=== PATIENT | male | born 1970 | race Caucasian/White ===

== ENCOUNTER 2021-04-27 01:23 | Inpatient (IN) | payer BC ==
[2021-04-27 02:22] LABS: Absolute Lymphocytes (CBC) 0.8 K/uL (0.7-4.9); Basophils % 0.6 % (0-1.3); Hematocrit 46.3 % (39.6-49.0); Lymphocytes % 11.7 % (15.3-44.8); MPV 7.8 fL (7.6-11.3); RBC Red Blood Cell Count 5.56 M/uL (4.33-5.43)
[2021-04-27 02:23] LABS: Protime INR 1.11
[2021-04-27 02:38] LABS: ALT/SGPT 62 U/L (12-78); AST/SGOT 58 U/L (15-37); Albumin 3.4 g/dL (3.4-5.0); Alkaline Phosphatase 157 U/L (45-117); BUN Blood Urea Nitrogen 8 mg/dL (7-18); Bicarbonate 29 mmol/L (21-32); Bilirubin Direct 0.2 mg/dL (0-0.2); Bilirubin Total 0.5 mg/dL (0.2-1.0); Glucose Level 248 mg/dL (74-106); Magnesium 1.8 mg/dL (1.8-2.4); NT PRO-BNP 144 pg/mL (<125); Potassium 3.8 mmol/L (3.5-5.1); Protein, Total 7.5 g/dL (6.4-8.2); Sodium Level 132 mmol/L (136-145); Troponin (Emerg Dept Use Only) < 0.02 ng/mL (0.0-0.045)
[2021-04-27 03:35] LABS: SARS-COV-2 RT PCR POSITIVE (NEGATIVE)
[2021-04-27] MEDS ORDERED: METHYLPREDNISOLONE 125 MG INJ ONE (04:49)
[2021-04-27] MEDS ORDERED: ALBUTEROL INHALER 60 PUFF/8 GM IH ONE (04:50)
--- NOTE | 2021-04-27 05:06 | EDPHYS ---
Physician Documentation [facility] Name: Erick Daigle Age: 50 yrs Sex: Male : 1970 Arrival Date: 04/27/2021 Time: 01:27 Bed 27 Private MD: ED Physician Timmy Corey HPI: 04/27 04:00 This 50 yrs old Male presents to ER via Ambulatory with complaints of mh7 Breathing Difficulty, LOW 02-84%. 04:00 The patient has shortness of breath at rest, with light activity. Onset: The mh7 symptoms/episode began/occurred 3 day(s) ago, and became worse yesterday. Duration: The symptoms are intermittent, with no pattern. The patient's shortness of breath is aggravated by coughing, exertion, light activity, is alleviated by nothing. Associated signs and symptoms: Pertinent positives: non-productive cough, fever, Pertinent negatives: productive cough, diaphoresis, dizziness, hemoptysis, loss of consciousness, nausea, numbness in extremities, visual changes, vomiting. Severity of symptoms: At their worst the symptoms were moderate today, in the emergency department the symptoms have improved moderately. Historical: - Allergies: 01:40 No Known Allergies; da3 - PMHx: 01:40 None; da3 - Immunization history:: Client reports having NOT received the Covid vaccine. - Social history:: Smoking status: unknown. ROS: 04:00 Eyes: Negative for injury, pain, redness, and discharge, ENT: Negative for injury, mh7 pain, and discharge, Neck: Negative for injury, pain, and swelling, Cardiovascular: Negative for chest pain, palpitations, and edema, Abdomen/GI: Negative for abdominal pain, nausea, vomiting, diarrhea, and constipation, Back: Negative for injury and pain, : Negative for injury, bleeding, discharge, and swelling, MS/Extremity: Negative for injury and deformity, Skin: Negative for injury, rash, and discoloration, Neuro: Negative for headache, weakness, numbness, tingling, and seizure, Psych: Negative for depression, anxiety, suicide ideation, homicidal ideation, and hallucinations, Allergy/Immunology: Negative for hives, rash, and allergies, Endocrine: Negative for neck swelling, polydipsia, polyuria, polyphagia, and marked weight changes, Hematologic/Lymphatic: Negative for swollen nodes, abnormal bleeding, and unusual bruising. Exam: 04:00 Constitutional: This is a well developed, well nourished patient who is awake, alert, mh7 and in no acute distress. Head/Face: Normocephalic, atraumatic. Eyes: Pupils equal round and reactive to light, extra-ocular motions intact. Lids and lashes normal. Conjunctiva and sclera are non-icteric and not injected. Cornea within normal limits. Periorbital areas with no swelling, redness, or edema. Neck: Trachea midline, no thyromegaly or masses palpated, and no cervical lymphadenopathy. Supple, full range of motion without nuchal rigidity, or vertebral point tenderness. No Meningismus. Chest/axilla: Normal chest wall appearance and motion. Nontender with no deformity. No lesions are appreciated. Cardiovascular: Regular rate and rhythm with a normal S1 and S2. No gallops, murmurs, or rubs. Normal PMI, no JVD. No pulse deficits. 04:00 Abdomen/GI: Soft, non-tender, with normal bowel sounds. No distension or tympany. No guarding or rebound. No evidence of tenderness throughout. Back: No spinal tenderness. No costovertebral tenderness. Full range of motion. Skin: Warm, dry with normal turgor. Normal color with no rashes, no lesions, and no evidence of cellulitis. MS/ Extremity: Pulses equal, no cyanosis. Neurovascular intact. Full, normal range of motion. Neuro: Awake and alert, GCS 15, oriented to person, place, time, and situation. Cranial nerves II-XII grossly intact. Motor strength 5/5 in all extremities. Sensory grossly intact. Cerebellar exam normal. Normal gait. Psych: Awake, alert, with orientation to person, place and time. Behavior, mood, and affect are within normal limits. 04:00 Respiratory: mild respiratory distress is noted, Respirations: prolonged exhalation, that is mild, Breath sounds: rhonchi, that are moderate, are heard diffusely, Respiratory rate: 26 Vital Signs: 01:41 BP 104 / 69; Pulse 83; Resp 18; da3 01:41 Temp 97; Pulse Ox 91% on R/A; da3 03:49 BP 115 / 79; Pulse 84; Resp 26; Temp 99.1; Pulse Ox 93% on R/A; bs2 MDM: 04:58 Differential diagnosis: Anemia Anxiety Reaction asthma, Bronchitis CHF exacerbation, 7 Chronic Obstructive Pulmonary Disease Myocardial Infarction pneumonia, Psychogenic pulmonary edema. Data reviewed: vital signs, nurses notes, lab test result(s), cardiac enzymes, CBC, electrolytes, Flu: negative urinalysis, Covid positive. Data interpreted: Pulse oximetry: on room air is 92 %. Interpretation: hypoxia. Plan: O2 by NC applied. 05:04 Counseling: I had a detailed discussion with the patient and/or guardian regarding: the [facility] historical points, exam findings, and any diagnostic results supporting the discharge/admit diagnosis, lab results, radiology results, the need for further work-up and treatment in the hospital. Response to treatment: the patient's symptoms have mildly improved after treatment. 05:05 Patient medically screened. [facility] 04/27 01:46 Order name: Influenza Screen (a \T\ B) [facility] 04/27 01:46 Order name: Basic Metabolic Panel; Complete Time: 03:43 [facility] 04/27 01:46 Order name: CBC with Diff; Complete Time: 03:43 04/27 01:46 Order name: LFT's; Complete Time: 03:43 04/27 01:46 Order name: Magnesium; Complete Time: 03:43 04/27 01:46 Order name: NT PRO-BNP; Complete Time: 03:43 04/27 01:46 Order name: PT-INR; Complete Time: 03:43 04/27 01:46 Order name: Troponin (emerg Dept Use Only); Complete Time: 03:43 04/27 01:46 Order name: Lactate; Complete Time: 03:43 04/27 01:46 Order name: Procalcitonin; Complete Time: 03:43 04/27 03:35 Order name: COVID-19/FLU A+B; Complete Time: 03:43 [facility]IA 04/27 01:46 Order name: XRAY Chest (1 view) [facility] 04/27 01:46 Order name: EKG; Complete Time: 01:47 04/27 01:46 Order name: Cardiac monitoring; Complete Time: 03:48 [facility] 04/27 01:46 Order name: EKG - Nurse/Tech; Complete Time: 03:48 mh04/27 01:46 Order name: IV Saline Lock; Complete Time: 03:48 [facility] 04/27 01:46 Order name: Labs collected and sent; Complete Time: 03:48 [facility] 04/27 01:46 Order name: O2 Per Protocol; Complete Time: 03:48 [facility] 04/27 04:09 Order name: DD ej 04/27 04:10 Order name: CONS Physician Consult [facility] 04/27 04:10 Order name: D-Dimer [facility] 04/27 07:47 Order name: Glucose, Ancillary Testing [facility] 04/27 11:59 Order name: Glucose, Ancillary Testing [facility] 04/27 12:51 Order name: Procalcitonin [facility] 04/27 15:49 Order name: Glucose, Ancillary Testing [facility] 04/27 01:46 Order name: O2 Sat Monitoring; Complete Time: 03:48 [facility] Administered Medications: 04:25 Drug: SOLU-Medrol (methylPrednisoLONE) 80 mg Route: IVP; Site: left antecubital; bs2 06:27 Follow up: Response: No adverse reaction bs2 04:25 Drug: Albuterol HFA Inhaler 2 puffs Route: Inhalation; bs2 Disposition Summary: 04/27/21 05:05 Hospitalization Ordered Hospitalization Status: Inpatient Admission [facility] Provider: Pawel Hanna Jolene Condition: Stable [facility] Problem: new [facility] Symptoms: have improved [facility] Bed/Room Type: Standard [facility] Location: Telemetry/MedSurg (Inpatient)(04/27/21 14:10) eb Room Assignment: [facility](04/27/21 14:10) eb Diagnosis - COVID Pneumonia, Hypoxia [facility] Forms: - Medication Reconciliation Form [facility] - SBAR form [facility] Signatures: Dispatcher [employer] [facility] Shania Mueller RN RN mw Botello, Elizabeth eb Holmes, Maurice, MD MD 7 Landon Lawton RN RN [email or web address] Audrey Beard RN RN bs2 Corrections: (The following items were deleted from the chart) 02:20 01:46 Influenza Screen (A ordered. [facility]IA EDMS 02:31 02:29 CORONAVIRUS+MR.LAB.BRZ ordered. EDIA EDMS 05:07 05:05 Telemetry/MedSurg (Inpatient) formerly [facility] 05:07 05:05 mh7 mw 14:10 05:07 BR ER HOLD mw eb 14:10 05:07 ERHOLD- mw eb
--- NOTE | 2021-04-27 05:06 | ER ---
Nurse's Notes [facility] Name: Erick Daigle Age: 50 yrs Sex: Male : 1970 Arrival Date: 04/27/2021 Time: 01:27 Bed 27 Private MD: Diagnosis: COVID Pneumonia, Hypoxia Presentation: 04/27 01:39 Chief complaint: Patient states: short of breath. Coronavirus screen: Client denies da3 travel out of the [place] in the last 14 days. Client presents with at least one sign or symptom that may indicate coronavirus-19. Ebola Screen: No symptoms or risks identified at this time. Risk Assessment: Do you want to hurt yourself or someone else? Patient reports no desire to harm self or others. 01:39 Method Of Arrival: Ambulatory da3 01:39 Acuity: ANIA 3 da3 03:54 Initial Sepsis Screen: Does the patient meet any 2 criteria? RR > 20 per min. No. bs2 Patient's initial sepsis screen is negative. Does the patient have a suspected source of infection? Yes: Productive cough/pneumonia. Onset of symptoms is unknown. Triage Assessment: 01:41 General: Appears comfortable, Behavior is calm, cooperative. da3 03:55 Respiratory: Reports shortness of breath on exertion cough that is non-productive, bs2 Onset: The symptoms/episode began/occurred gradually, the patient has moderate shortness of breath. Historical: - Allergies: 01:40 No Known Allergies; da3 - PMHx: 01:40 None; da3 - Immunization history:: Client reports having NOT received the Covid vaccine. - Social history:: Smoking status: unknown. Screenin:50 Abuse screen: Denies threats or abuse. Denies injuries from another. Nutritional bs2 screening: No deficits noted. Tuberculosis screening: No symptoms or risk factors identified. Fall Risk None identified. Assessment: 02:11 General: Appears in no apparent distress. uncomfortable, Behavior is calm, cooperative. bb Cardiovascular: Capillary refill < 3 seconds Patient's skin is warm and dry. Respiratory: Airway is patent Respiratory effort is labored. GI: No deficits noted. Derm: Skin is clammy, Skin is pale, Skin temperature is cool. Musculoskeletal: Circulation, motion, and sensation intact. 03:50 Pain: Complains of pain in headache Pain currently is 2 out of 10 on a pain scale. bs2 Cardiovascular: Rhythm is regular. Respiratory: Breath sounds are diminished bilaterally. Vital Signs: 01:41 BP 104 / 69; Pulse 83; Resp 18; da3 01:41 Temp 97; Pulse Ox 91% on R/A; da3 03:49 BP 115 / 79; Pulse 84; Resp 26; Temp 99.1; Pulse Ox 93% on R/A; bs2 ED Course: 01:27 Patient arrived in ED. 01:40 Triage completed. da3 02:00 Initial lab(s) drawn, by oh, sent to lab. COVID swab sent to lab. Flu and/or RSV swab bb sent to lab. Inserted saline lock: 20 gauge in left antecubital area, using aseptic technique. Blood collected. 02:11 Patient has correct armband on for positive identification. bb 02:20 XRAY Chest (1 view) In Process Unspecified. EDMS 03:42 Timmy Corey MD is Attending Physician. 7 03:48 Audrey Beard RN is Primary Nurse. bs2 03:48 Influenza Screen (a \T\ B) Sent. bs2 03:50 No provider procedures requiring assistance completed. bs2 03:55 Patient placed in an exam room, on a stretcher, on radiographer cardiac catheterization, on pulse oximetry. bs2 EKG completed in triage. Results shown to MD. 05:05 Pawel Hanna MD is Hospitalizing Provider. [facility] 15:20 Primary Nurse role handed off by Audrey Beard RN [facility] 15:20 Sourav Severino RN is Primary Nurse. 5 Administered Medications: 04:25 Drug: SOLU-Medrol (methylPrednisoLONE) 80 mg Route: IVP; Site: left antecubital; bs2 06:27 Follow up: Response: No adverse reaction bs2 04:25 Drug: Albuterol HFA Inhaler 2 puffs Route: Inhalation; bs2 Outcome: 05:05 Decision to Hospitalize by Provider. 7 15:55 Patient left the ED. eb Signatures: Dispatcher [employer] EDFL Cinthia Bianchi RN RN bb Botello, Elizabeth Timmy Corey MD MD [facility] Adelaida Mills Landon Lawton RN RN 3 Audrey Beard RN RN bs2 Adyen Severinoopher, RN RN ch5
--- NOTE | 2021-04-27 06:09 | P.HP ---
Certification for Inpatient Patient admitted to: Observation With expected LOS: <2 Midnights Patient will require the following post-hospital care: None Practitioner: I am a practitioner with admitting privileges, knowledge of patient current condition, hospital course, and medical plan of care. Services: Services provided to patient in accordance with Admission requirements found in Title 42 Section 412.3 of the Code of Federal Regulations Patient History Date of Service: 04/27/21 Primary Care Provider: Cyndi Reason for admission: covid pneumonia History of Present Illness: Mr. Daigle is a 50 yo M who presents with two days of cough and SOB, with exposure to COVId last Wednesday from family member. At home his O2 sats were 84% on RA, 91% in the ED. He reports fever, malaise, headache, congestion, wheezing, ELISE, insomnia, constipation. Denies diarrhea. Reports good appetite and good fluid intake. Na 132. Glu 248. AST 58. alk phos 157. BNP 144. Ddimer 1121. - Past Medical/Surgical History -: 14 concussions -: blowout fracture left eye - Family History Mother -: Liver disease Notes: from liver cirrhosis - Social History Alcohol use: No CD- Drugs: No Caffeine use: Yes Place of Residence: Home Review of Systems 10-point ROS is otherwise unremarkable General: Fever, Malaise Respiratory: Cough, Shortness of Breath, SOB with Excertion, Wheezing Gastrointestinal: Constipation Physical Examination - Physical Exam General: Alert, In no apparent distress HEENT: Atraumatic, PERRLA, Mucous membr. moist/pink, EOMI, Sclerae nonicteric Neck: Supple, 2+ carotid pulse no bruit, No LAD, Without JVD or thyroid abnormality Respiratory: Normal air movement, Expiratory wheezes, Rhonchi/gurgles Cardiovascular: Regular rate/rhythm, Normal S1 S2 Gastrointestinal: Normal bowel sounds, No tenderness Musculoskeletal: No tenderness Integumentary: No rashes Neurological: Normal speech, Normal strength at 5/5 x4 extr, Normal tone, Normal affect Lymphatics: No axilla or inguinal lymphadenopathy - Studies Laboratory Data (last 24 hrs) 04/27/21 02:00: PT 12.8 H, INR 1.11 04/27/21 02:00: WBC 6.80, Hgb 16.1, Hct 46.3, Plt Count 169 04/27/21 02:00: Sodium 132 L, Potassium 3.8, BUN 8, Creatinine 0.83, Glucose 248 H, Magnesium 1.8, Total Bilirubin 0.5, AST 58 H, ALT 62, Alkaline Phosphatase 157 H Assessment and Plan - Problems (Diagnosis) (1) Pneumonia due to COVID-19 virus Current Visit: Yes Status: Acute (2) Hyperglycemia Current Visit: Yes Status: Acute - Plan pulm and respiratory consulted room air sats daily, sats for home O2 O2 as needed, currently on room air, desats with ambulation CTPE pending continue IV steroids, covid supplements, ivermectin daily crp, procal, ferritin A1c pending, sliding scale insulin and accuchecks DVT ppx Discharge Plan: Home Plan to discharge in: 48 Hours - Advance Directives Does patient have a Living Will: No Does patient have a Durable POA for Healthcare: No - Code Status/Comfort Care Code Status Assessed: Yes (full code ) Critical Care: No Time Spent Managing Pts Care (In Minutes): 70
[2021-04-27] MEDS ORDERED: ACETAMINOPHEN 500 MG TAB PO PRN (06:32)
[2021-04-27] MEDS ORDERED: ONDANSETRON 4 MG/2 ML VIAL IV PRN (06:32)
[2021-04-27] MEDS ORDERED: MELATONIN 5 MG TABLET PO PRN (06:32)
[2021-04-27] MEDS ORDERED: BENZONATATE 100 MG CAP PO PRN (06:32)
[2021-04-27] MEDS ORDERED: MORPHINE 2 MG/ML SYR IV PRN (06:32)
[2021-04-27] MEDS: IVERMECTIN 3 MG TABLET PO SCH (06:32)
[2021-04-27] MEDS: INSULIN -REGULAR HUMAN 50 UNIT/0.5 ML ML SQ SCH ×5 (07:30→20:33)
[2021-04-27] MEDS ORDERED: MORPHINE 2 MG/ML SYR ONE (07:54)
[2021-04-27] MEDS ORDERED: INSULIN -REGULAR HUMAN 50 UNIT/0.5 ML ML ONE ×2 (08:06→12:37)
[2021-04-27] MEDS ORDERED: ASCORBIC ACID 500 MG TABLET ONE ×2 (08:15→12:38)
[2021-04-27] MEDS ORDERED: ZINC SULFATE 220 MG CAP ONE (08:15)
[2021-04-27] MEDS ORDERED: ASPIRIN EC 81 MG TAB PO ONE (08:15)
[2021-04-27] MEDS ORDERED: VITAMIN D 1000 UNIT TAB ONE (08:16)
[2021-04-27] MEDS ORDERED: THIAMINE HCL 100 MG TABLET ONE (08:16)
[2021-04-27] MEDS ORDERED: ASPIRIN EC 81 MG TAB PO SCH (09:00)
[2021-04-27] MEDS ORDERED: THIAMINE HCL 100 MG TABLET PO SCH (09:00)
[2021-04-27] MEDS: FAMOTIDINE 20 MG TAB PO SCH ×2 (09:00→20:32)
[2021-04-27] MEDS: VITAMIN D 1000 UNIT TAB PO SCH (09:00)
[2021-04-27] MEDS: ASCORBIC ACID 500 MG TABLET PO SCH ×4 (09:00→20:32)
[2021-04-27] MEDS: ZINC SULFATE 220 MG CAP PO SCH (09:00)
--- NOTE | 2021-04-27 09:25 | RAD REPORT ---
EXAM DESCRIPTION: Mita Single View04/27/2021 2:20 am CLINICAL HISTORY: Shortness of breath COMPARISON: none FINDINGS: Moderate bilateral pulmonary opacities. The heart is normal size IMPRESSION: Moderate bilateral pulmonary opacities probably pneumonia
[2021-04-27 09:26] VITALS: BMI 24.4
--- NOTE | 2021-04-27 11:56 | P.CNS ---
Date of Consult: 04/27/21 Reason for Consult: Coronavirus pneumonia Primary Care Provider: Cyndi Chief Complaint: covid pneumonia History of Present Illness: Patient is 50 years of age admitted with acute onset of cough and shortness of breath diagnosed with coronavirus pneumonia he feels much better is on nasal cannula oxygen Allergies No Known Allergies Allergy (Unverified 04/27/21 06:32) - Past Medical/Surgical History -: 14 concussions -: blowout fracture left eye - Family History Mother Medical History: Liver disease Notes: from liver cirrhosis - Social History Alcohol use: No CD- Drugs: No Caffeine use: Yes Place of Residence: Home Review of Systems Respiratory: Shortness of Breath Physical Examination Temp Pulse Resp BP Pulse Ox 98.0 F 80 20 125/69 96 04/27/21 07:44 04/27/21 07:44 04/27/21 07:44 04/27/21 07:44 04/27/21 07:44 General: Alert, Oriented x3, Oriented x2, Cooperative Laboratory Data (last 24 hrs) 04/27/21 02:00: PT 12.8 H, INR 1.11 04/27/21 02:00: WBC 6.80, Hgb 16.1, Hct 46.3, Plt Count 169 04/27/21 02:00: Sodium 132 L, Potassium 3.8, BUN 8, Creatinine 0.83, Glucose 248 H, Magnesium 1.8, Total Bilirubin 0.5, AST 58 H, ALT 62, Alkaline Phosphatase 157 H - Problems (1) Pneumonia due to COVID-19 virus Current Visit: Yes Status: Acute Plan: Patient is 50 years of age admitted with coronavirus pneumonia he is on 2 L nasal cannula oxygen labs reviewed CT scan shows diffuse bilateral changes continue to observe for 1 day possible discharge tomorrow
[2021-04-27] MEDS ORDERED: POTASSIUM CL SA 10 MEQ TAB PO ONE (15:00)
[2021-04-27] MEDS ORDERED: MAGNESIUM SULFATE 1 gm IVPB 1 GM/100 ML BAG IV ONE (15:01)
[2021-04-27] MEDS: RIVAROXABAN 20 MG TABLET PO SCH (16:19)
[2021-04-27] MEDS ORDERED: RIVAROXABAN 10 MG TABLET PO SCH (17:00)
[2021-04-28 04:06] LABS: BUN Blood Urea Nitrogen 15 mg/dL (7-18); Bicarbonate 29 mmol/L (21-32); Glucose Level 242 mg/dL (74-106); Magnesium 2.4 mg/dL (1.8-2.4); Potassium 4.6 mmol/L (3.5-5.1); Sodium Level 138 mmol/L (136-145)
[2021-04-28] MEDS: ZINC SULFATE 220 MG CAP PO SCH (07:36)
[2021-04-28] MEDS: ASPIRIN EC 81 MG TAB PO SCH (07:36)
[2021-04-28] MEDS: VITAMIN D 1000 UNIT TAB PO SCH (07:36)
[2021-04-28] MEDS: THIAMINE HCL 100 MG TABLET PO SCH (07:37)
[2021-04-28] MEDS: METHYLPREDNISOLONE 125 MG INJ IV SCH ×2 (07:37→20:23)
[2021-04-28] MEDS: FAMOTIDINE 20 MG TAB PO SCH ×2 (07:38→20:03)
[2021-04-28] MEDS: ASCORBIC ACID 500 MG TABLET PO SCH ×4 (07:39→20:03)
[2021-04-28] MEDS: INSULIN -REGULAR HUMAN 50 UNIT/0.5 ML ML SQ SCH ×4 (07:40→20:26)
[2021-04-28] MEDS ORDERED: METHYLPREDNISOLONE 125 MG INJ IV SCH (09:00)
--- NOTE | 2021-04-28 10:26 | RAD REPORT ---
EXAM DESCRIPTION: CT - Chest For Pe Angio - 04/27/2021 7:05 am CLINICAL HISTORY: The patient is 50 years old and is Male; SOB TECHNIQUE: Axial computed tomographic angiography images of the chest with intravenous contrast. S agittal and coronal reformatted images were created and reviewed. This CT exam was performed using one or more of the following dose reduction techniques: automated exposure control, adjustment of t he mA and/or kV according to patient size, and/or use of iterative reconstruction technique. MIP re constructed images were created and reviewed. COMPARISON: No relevant prior studies available. FINDINGS: Artifacts: Motion artifact limits the sensitivity of the evaluation. Pulmonary arteries: No PE identified. Aorta: No acute findings. No thoracic aortic aneurysm. Lungs: Bilateral multifocal pulmonary groundglass opacities. Pleural space: No pleural effusion or pneumothorax. Heart: Unremarkable. No cardiomegaly. No significant pericardial effusion. No evidence of RV dysfunction. Mediastinum: Mildly enlarged right hilar and subcarinal lymph nodes. Bones/joints: Scoliosis. No acute fracture visualized. No dislocation. Soft tissues: Unremarkable. Lymph nodes: See above. Upper abdomen: Elevated right hemidiaphragm. IMPRESSION: 1. Motion artifact limits the sensitivity of the evaluation. No PE identified. 2. Bilateral multifocal pulmonary groundglass opacities. Imaging features can be seen with viral pneumonia, though are nonspecific and can occur with a variety of infectious and noninfectious proces ses. PneInd Electronically signed by: Thao Low MD 04/27/2021 6:47 AM CDT Due to temporary technical issues with the PACS/Fluency reporting system, reports are being signed by the in house radiologist without review as a courtesy to ensure prompt reporting. The interpreting r adiologist is fully responsible for the content of the report.
[2021-04-28] MEDS: RIVAROXABAN 20 MG TABLET PO SCH (16:07)
--- NOTE | 2021-04-28 16:38 | P.PN ---
Subjective Date of Service: 04/28/21 Primary Care Provider: Cyndi Chief Complaint: covid pneumonia Subjective: Other (Overall stable. Currently on 5 L per nasal cannula) Physical Examination - Vital Signs Temperature: 97.4 F Blood Pressure: 117/73 Pulse: 85 Respirations: 19 Pulse Ox (%): 92 Assessment & Plan Discharge Plan: Home Plan to discharge in: 48 Hours Physician Review Additional Text: COVID: Positive CT scan: COMPARISON: No relevant prior studies available. FINDINGS: Artifacts: Motion artifact limits the sensitivity of the evaluation. Pulmonary arteries: No PE identified. Aorta: No acute findings. No thoracic aortic aneurysm. Lungs: Bilateral multifocal pulmonary groundglass opacities. Pleural space: No pleural effusion or pneumothorax. Heart: Unremarkable. No cardiomegaly. No significant pericardial effusion. No evidence of RV dysfunction. Mediastinum: Mildly enlarged right hilar and subcarinal lymph nodes. Bones/joints: Scoliosis. No acute fracture visualized. No dislocation. Soft tissues: Unremarkable. Lymph nodes: See above. Upper abdomen: Elevated right hemidiaphragm. IMPRESSION: 1. Motion artifact limits the sensitivity of the evaluation. No PE identified. 2. Bilateral multifocal pulmonary groundglass opacities. Imaging features can be seen with viral pneumonia, though are nonspecific and can occur with a variety of infectious and noninfectious processes. Physical Exam: GENERAL: On 5 L per nasal cannula overall currently stable. VITAL SIGNS: Reviewed HEENT: Head is normocephalic and atraumatic. Extraocular muscles are intact. Pupils are equal, round, and reactive to light and accommodation. Nares appeared normal. Mouth is well hydrated and without lesions. Mucous membranes are moist. NECK: Supple. No carotid bruits. No lymphadenopathy or thyromegaly. LUNGS: Clear to auscultation. No crackles or wheezes are heard. 5 L per nasal cannula HEART: Regular rate and rhythm, no appreciable gallops, rubs, murmurs or extra heart sounds ABDOMEN: Soft, nontender, and nondistended. Positive bowel sounds. No hepatosplenomegaly was noted. EXTREMITIES: Without any cyanosis, clubbing, rash, lesions or peripheral edema. NEUROLOGIC: The patient is oriented to person, place and time. Strength and sensation are grossly intact. Face is symmetric. SKIN: Normal color, turgor and temperature. No ulcerations or rashes noted. Impression: Dyspnea secondary to bilateral Covid pneumonia with hypoxia Hyperglycemia suspect diabetes mellitus Plan: Continue with IV steroids, supplements. We will continue to monitor closely. DVT prophylaxisXarelto in place. Await recommendations by pulmonology. Anticipate improvement. Can likely be discharged home if less than 4 L per nasal cannula over the next 48 hours. Encourage incentive spirometer, proning. Respiratory to continue to wean off oxygen. Maintain sats above 93%. Will check A1c. Provide sliding scale. Evaluate for diabetes. Code Status: Full Code DVT prophylaxis: Xarelto Advanced Care Planning-30 minutes: Plan of care for the patient's discharge was discussed in detail with the patient and family. Time Spent Managing Pts Care (In Minutes): 55
[2021-04-28] MEDS ORDERED: VANCOMYCIN 500 MG/VIAL ONE (23:04)
[2021-04-29 03:45] LABS: Basophils % 0.2 % (0-1.3); Hematocrit 43.8 % (39.6-49.0); Lymphocytes % 5.9 % (15.3-44.8); MPV 6.9 fL (7.6-11.3); RBC Red Blood Cell Count 5.21 M/uL (4.33-5.43)
[2021-04-29 04:13] LABS: ALT/SGPT 49 U/L (12-78); AST/SGOT 40 U/L (15-37); Alkaline Phosphatase 152 U/L (45-117); BUN Blood Urea Nitrogen 19 mg/dL (7-18); Bicarbonate 29 mmol/L (21-32); Bilirubin Total 0.5 mg/dL (0.2-1.0); Glucose Level 252 mg/dL (74-106); Potassium 4.1 mmol/L (3.5-5.1); Protein, Total 7.2 g/dL (6.4-8.2); Sodium Level 138 mmol/L (136-145)
[2021-04-29 04:14] LABS: Ferritin 1198.2 ng/mL (26-388); Magnesium 2.4 mg/dL (1.8-2.4)
[2021-04-29 05:00] LABS: Blood Morphology Comment NOT SEEN (NOT SEEN); Platelet Estimate ADEQ
--- NOTE | 2021-04-29 06:39 | P.PN ---
Subjective Date of Service: 04/29/21 Primary Care Provider: Cyndi Chief Complaint: covid pneumonia Subjective: Improving (Currently on 4.5 L) Physical Examination - Vital Signs Temperature: 98.9 F Blood Pressure: 101/60 Pulse: 67 Respirations: 18 Pulse Ox (%): 93 Assessment & Plan Discharge Plan: Home Plan to discharge in: 24 Hours Physician Review Additional Text: COVID: Positive CT scan: COMPARISON: No relevant prior studies available. FINDINGS: Artifacts: Motion artifact limits the sensitivity of the evaluation. Pulmonary arteries: No PE identified. Aorta: No acute findings. No thoracic aortic aneurysm. Lungs: Bilateral multifocal pulmonary groundglass opacities. Pleural space: No pleural effusion or pneumothorax. Heart: Unremarkable. No cardiomegaly. No significant pericardial effusion. No evidence of RV dysfunction. Mediastinum: Mildly enlarged right hilar and subcarinal lymph nodes. Bones/joints: Scoliosis. No acute fracture visualized. No dislocation. Soft tissues: Unremarkable. Lymph nodes: See above. Upper abdomen: Elevated right hemidiaphragm. IMPRESSION: 1. Motion artifact limits the sensitivity of the evaluation. No PE identified. 2. Bilateral multifocal pulmonary groundglass opacities. Imaging features can be seen with viral pneumonia, though are nonspecific and can occur with a variety of infectious and noninfectious processes. Follow up CXR 04/29/2021: COMPARISON: April 27 FINDINGS: Mild worsening in bilateral pulmonary opacities. Right hemidiaphragm remains elevated. The heart is normal size IMPRESSION: Mild worsening in the bilateral pneumonia Physical Exam: GENERAL: Currently on 4.5 L VITAL SIGNS: Reviewed HEENT: Neck supple. LUNGS: Clear to auscultation. No crackles or wheezes are heard. Currently on 4.5 L HEART: Regular rate and rhythm, no appreciable gallops, rubs, murmurs or extra heart sounds ABDOMEN: Soft, nontender, and nondistended. Positive bowel sounds. No hepatosplenomegaly was noted. EXTREMITIES: Without any cyanosis, clubbing, rash, lesions or peripheral edema. NEUROLOGIC: The patient is oriented to person, place and time. Strength and sensation are grossly intact. Face is symmetric. SKIN: Normal color, turgor and temperature. No ulcerations or rashes noted. Impression: Dyspnea secondary to bilateral Covid pneumonia with hypoxia Hyperglycemia suspect diabetes mellitus Plan: Patient continues to improve. Wean down below 4 L. If tolerating 4 L or less will consider discharge within the next 24 hours. Maintain oxygen above 93%. Continue IV steroids, supplementation. We will continue to monitor CRP and ferritin. Patient on DVT prophylaxisXarelto. Encourage stat spirometer, proning. Hemoglobin A1c 10.4. Patient with diabetes. Will start Metformin 500 mg twice daily. We will continue to monitor blood sugar closely. Consider additional medication if blood sugar still elevated. Possible home tomorrow Code Status: Full Code DVT prophylaxis: Xarelto Advanced Care Planning-30 minutes: Home at discharge will arrange for oxygen Time Spent Managing Pts Care (In Minutes): 55
[2021-04-29] MEDS: IVERMECTIN 3 MG TABLET PO SCH (06:57)
--- NOTE | 2021-04-29 07:40 | RAD REPORT ---
EXAM DESCRIPTION: Mita Single View04/29/2021 7:10 am CLINICAL HISTORY: Shortness of breath COMPARISON: April 27 FINDINGS: Mild worsening in bilateral pulmonary opacities. Right hemidiaphragm remains elevated. The heart is normal size IMPRESSION: Mild worsening in the bilateral pneumonia
[2021-04-29] MEDS: INSULIN -REGULAR HUMAN 50 UNIT/0.5 ML ML SQ SCH ×4 (09:52→19:59)
[2021-04-29] MEDS: ASPIRIN EC 81 MG TAB PO SCH (09:54)
[2021-04-29] MEDS: ZINC SULFATE 220 MG CAP PO SCH (09:54)
[2021-04-29] MEDS: VITAMIN D 1000 UNIT TAB PO SCH (09:54)
[2021-04-29] MEDS: FAMOTIDINE 20 MG TAB PO SCH ×2 (09:54→19:58)
[2021-04-29] MEDS: ASCORBIC ACID 500 MG TABLET PO SCH ×4 (09:55→19:57)
[2021-04-29] MEDS: METHYLPREDNISOLONE 125 MG INJ IV SCH ×2 (09:55→19:58)
[2021-04-29] MEDS: THIAMINE HCL 100 MG TABLET PO SCH (09:55)
[2021-04-29] MEDS: RIVAROXABAN 20 MG TABLET PO SCH (18:11)
[2021-04-29] MEDS: METFORMIN HCL 500 MG TAB PO SCH (18:12)
[2021-04-30 04:11] LABS: Absolute Lymphocytes (CBC) 0.9 K/uL (0.7-4.9); Basophils % 0.2 % (0-1.3); Hematocrit 44.6 % (39.6-49.0); Lymphocytes % 4.6 % (15.3-44.8); MPV 6.8 fL (7.6-11.3); RBC Red Blood Cell Count 5.33 M/uL (4.33-5.43)
[2021-04-30 04:35] LABS: ALT/SGPT 49 U/L (12-78); AST/SGOT 39 U/L (15-37); Albumin 2.9 g/dL (3.4-5.0); Alkaline Phosphatase 144 U/L (45-117); BUN Blood Urea Nitrogen 27 mg/dL (7-18); Bicarbonate 29 mmol/L (21-32); Bilirubin Total 0.5 mg/dL (0.2-1.0); Ferritin 1095.8 ng/mL (26-388); Glucose Level 227 mg/dL (74-106); Magnesium 2.5 mg/dL (1.8-2.4); Potassium 4.2 mmol/L (3.5-5.1); Sodium Level 138 mmol/L (136-145)
--- NOTE | 2021-04-30 06:22 | P.DS ---
Admission Date: 04/27/21 Discharge Date: 04/30/21 Primary Care Provider: Dr. Hanna Disposition: ROUTINE DISCHARGE Discharge Condition: GOOD Reason for Admission: covid pneumonia Consultations: Pulmonary-Dr. Damon Procedures: COVID: Positive CT scan: COMPARISON: No relevant prior studies available. FINDINGS: Artifacts: Motion artifact limits the sensitivity of the evaluation. Pulmonary arteries: No PE identified. Aorta: No acute findings. No thoracic aortic aneurysm. Lungs: Bilateral multifocal pulmonary groundglass opacities. Pleural space: No pleural effusion or pneumothorax. Heart: Unremarkable. No cardiomegaly. No significant pericardial effusion. No evidence of RV dysfunction. Mediastinum: Mildly enlarged right hilar and subcarinal lymph nodes. Bones/joints: Scoliosis. No acute fracture visualized. No dislocation. Soft tissues: Unremarkable. Lymph nodes: See above. Upper abdomen: Elevated right hemidiaphragm. IMPRESSION: 1. Motion artifact limits the sensitivity of the evaluation. No PE identified. 2. Bilateral multifocal pulmonary groundglass opacities. Imaging features can be seen with viral pneumonia, though are nonspecific and can occur with a variety of infectious and noninfectious processes. Follow up CXR 04/29/2021: COMPARISON: April 27 FINDINGS: Mild worsening in bilateral pulmonary opacities. Right hemidiaphragm remains elevated. The heart is normal size IMPRESSION: Mild worsening in the bilateral pneumonia Medical Problem List: Dyspnea secondary to bilateral Covid pneumonia with hypoxia Hyperglycemia suspect diabetes mellitus Brief History of Present Illness: 50-year-old male presented with increased cough and shortness of breath. Patient was exposed to a patient with Covid last Wednesday. Patient found to be hypoxic in the ER. Patient admitted for treatment. Hospital Course: Patient presented with dyspnea secondary to bilateral Covid pneumonia with hypoxia. Patient was admitted for treatment. Patient required IV antibiotic therapy and supplementation. His condition has significantly improved. Patient currently on 2 L per nasal cannula. CT scan showed no evidence of pulmonary embolism. At discharge the patient will continue with home oxygen to maintain sats above 93%. Home oxygen will be arranged. Currently on 2 L per nasal cannula. At discharge the patient will continue with prednisone 20 mg 1 pill twice daily for 7 days then 1 pill once daily for 7 days. The patient will also continue with Tessalon Perles 100 mg 3 times a day as needed for cough. The patient will continue with aspirin 81 mg daily. The patient will continue with vitamin supplementation including vitamin C 500 mg 1 pill 3 times a day, vitamin D 2000 units once daily, thiamine 100 mg 1 pill twice daily, Pepcid 20 mg 1 pill twice daily, and zinc 220 mg daily. Patient will continue with COVID-19 isolation guideline. Patient will continue with incentive spirometer, proning and lying on his side. Patient will continue with facemask use, handwashing, social distancing. Patient will follow up with pulmonology in 1 week to follow- up his hospitalization and continue his care. Pulmonology will help wean the patient off of the oxygen. Recommend to recheck chest x-ray in 2 to 4 weeks to monitor his progress. Recommend follow-up with his PCP in 1 week to follow-up this hospitalization as well. Patient was found to have hyperglycemia. New diagnosis of diabetes mellitus type 2 was noted. Hemoglobin A1c 10.4. Blood sugars were treated during the course of his stay. At discharge the patient will continue with Metformin 500 mg 1 pill twice daily. Patient will continue with a 2000 ADA diet. Patient will need to limit his use of carbohydrates. Education on diabetes provided. Recommend to monitor blood sugars at least twice daily. If his blood sugars remain greater than 200 further adjustment in medication may be required. This can be done with the help of his PCP. Recommend to recheck hemoglobin A1c in 3 months to monitor his progress. Recommend follow-up with PCP in 1 week to further address his condition. Vital Signs/Physical Exam: Temp Pulse Resp BP Pulse Ox 97.6 F 65 18 107/56 L 94 04/30/21 04:00 04/30/21 04:00 04/30/21 04:00 04/30/21 04:00 04/30/21 04:00 General: Alert, In no apparent distress, Cooperative HEENT: Atraumatic Neck: Supple Respiratory: Clear to auscultation bilaterally, Other (Currently on 2 L per nasal cannula) Cardiovascular: Normal pulses, Regular rate/rhythm Gastrointestinal: Normal bowel sounds Integumentary: No tenderness/swelling Neurological: Normal speech, Normal strength at 5/5 x4 extr, Normal tone Laboratory Data at Discharge: WBC 19.20 K/uL (4.3-10.9) H D 04/30/21 03:56 Hgb 15.3 g/dL (13.6-17.9) 04/30/21 03:56 Hct 44.6 % (39.6-49.0) 04/30/21 03:56 Plt Count 319 K/uL (152-406) 04/30/21 03:56 PT 12.8 SECONDS (9.5-12.5) H 04/27/21 02:00 INR 1.11 04/27/21 02:00 Sodium 138 mmol/L (136-145) 04/30/21 03:56 Potassium 4.2 mmol/L (3.5-5.1) 04/30/21 03:56 BUN 27 mg/dL (7-18) H 04/30/21 03:56 Creatinine 0.81 mg/dL (0.55-1.3) 04/30/21 03:56 Glucose 227 mg/dL (74-106) H 04/30/21 03:56 Magnesium 2.5 mg/dL (1.8-2.4) H 04/30/21 03:56 Total Bilirubin 0.5 mg/dL (0.2-1.0) 04/30/21 03:56 AST 39 U/L (15-37) H 04/30/21 03:56 ALT 49 U/L (12-78) 04/30/21 03:56 Alkaline Phosphatase 144 U/L (45-117) H 04/30/21 03:56 Home Medications: Ascorbic Acid [Vitamin C*] 500 mg PO TID #90 tablet 04/30/21 Aspirin [Aspirin EC 81 MG] 81 mg PO DAILY #30 tablet. 04/30/21 Benzonatate [Tessalon Perle*] 100 mg PO TID PRN #15 cap 04/30/21 Cholecalciferol (Vitamin D3) [Vitamin D 1000 Iu Tab*] 2,000 unit PO DAILY #60 tab 04/30/21 Famotidine [Pepcid*] 20 mg PO BID #60 tab 04/30/21 Metformin HCl [Glucophage*] 500 mg PO BIDWM #60 tab 04/30/21 Thiamine HCl [Vitamin B-1*] 100 mg PO BID #60 tablet 04/30/21 Zinc Sulfate [Zinc Sulfate*] 220 mg PO DAILY #30 cap 04/30/21 predniSONE [Prednisone*] 20 mg PO SEECOM #21 tab 04/30/21 New Medications: Aspirin [Aspirin EC 81 MG] 81 mg PO DAILY #30 tablet. Metformin HCl [Glucophage*] 500 mg PO BIDWM #60 tab Famotidine [Pepcid*] 20 mg PO BID #60 tab predniSONE [Prednisone*] 20 mg PO SEECOM #21 tab Benzonatate [Tessalon Perle*] 100 mg PO TID PRN #15 cap PRN Reason: Cough Thiamine HCl [Vitamin B-1*] 100 mg PO BID #60 tablet Ascorbic Acid [Vitamin C*] 500 mg PO TID #90 tablet Cholecalciferol (Vitamin D3) [Vitamin D 1000 Iu Tab*] 2,000 unit PO DAILY #60 tab Zinc Sulfate [Zinc Sulfate*] 220 mg PO DAILY #30 cap Physician Discharge Instructions: Patient presented with dyspnea secondary to bilateral Covid pneumonia with hypoxia. Patient was admitted for treatment. Patient required IV antibiotic therapy and supplementation. His condition has significantly improved. Patient currently on 2 L per nasal cannula. CT scan showed no evidence of pulmonary embolism. At discharge the patient will continue with home oxygen to maintain sats above 93%. Home oxygen will be arranged. Currently on 2 L per nasal cannula. At discharge the patient will continue with prednisone 20 mg 1 pill twice daily for 7 days then 1 pill once daily for 7 days. The patient will also continue with Tessalon Perles 100 mg 3 times a day as needed for cough. The patient will continue with aspirin 81 mg daily. The patient will continue with vitamin supplementation including vitamin C 500 mg 1 pill 3 times a day, vitamin D 2000 units once daily, thiamine 100 mg 1 pill twice daily, Pepcid 20 mg 1 pill twice daily, and zinc 220 mg daily. Patient will continue with COVID-19 isolation guideline. Patient will continue with incentive spirometer, proning and lying on his side. Patient will continue with facemask use, handwashing, social distancing. Patient will follow up with pulmonology in 1 week to follow- up his hospitalization and continue his care. Pulmonology will help wean the patient off of the oxygen. Recommend to recheck chest x-ray in 2 to 4 weeks to monitor his progress. Recommend follow-up with his PCP in 1 week to follow-up this hospitalization as well. Patient was found to have hyperglycemia. New diagnosis of diabetes mellitus type 2 was noted. Hemoglobin A1c 10.4. Blood sugars were treated during the course of his stay. At discharge the patient will continue with Metformin 500 mg 1 pill twice daily. Patient will continue with a 2000 ADA diet. Patient will need to limit his use of carbohydrates. Education on diabetes provided. Recommend to monitor blood sugars at least twice daily. If his blood sugars remain greater than 200 further adjustment in medication may be required. This can be done with the help of his PCP. Recommend to recheck hemoglobin A1c in 3 months to monitor his progress. Recommend follow-up with PCP in 1 week to further address his condition. Diet: ADA Activity: Ad cely Followup: Raul Damon MD [ACTIVE - CAN ADMIT] - 1 Week (Call for appointment.) NONE,NONE [Primary Care Provider] - 1 Week (Call for appointment) Time spent managing pt's care (in minutes): 55
[2021-04-30 08:41] VITALS: BP 107/66; TEMP 97.8
[2021-04-30] MEDS: ASPIRIN EC 81 MG TAB PO SCH (08:55)
[2021-04-30] MEDS: INSULIN -REGULAR HUMAN 50 UNIT/0.5 ML ML SQ SCH ×2 (08:55→11:30)
[2021-04-30] MEDS: THIAMINE HCL 100 MG TABLET PO SCH (08:56)
[2021-04-30] MEDS: METFORMIN HCL 500 MG TAB PO SCH (08:56)
[2021-04-30] MEDS: METHYLPREDNISOLONE 125 MG INJ IV SCH (08:56)
[2021-04-30] MEDS: ZINC SULFATE 220 MG CAP PO SCH (08:56)
[2021-04-30] MEDS: FAMOTIDINE 20 MG TAB PO SCH (08:56)
[2021-04-30] MEDS: VITAMIN D 1000 UNIT TAB PO SCH (08:56)
[2021-04-30] MEDS: ASCORBIC ACID 500 MG TABLET PO SCH (08:56)
[2021-04-30 11:43] VITALS: O2SAT 94
== END 2021-04-30 12:15 | disposition home or self-care (01) | DRG 177 ==
LOC: ER 01:23 → ERHOLD 04:14 → UNDODISIN 13:02 → 4TH 15:10
PROVIDERS: ADMIT Internal Medicine; ATTEND Internal Medicine
DX: U07.1 COVID-19 (principal); J12.82 Pneumonia due to coronavirus disease 2019; R09.02 Hypoxemia; E11.65 Type 2 diabetes mellitus with hyperglycemia
CPT/HCPCS: 0240U; 36415; 71045; 71275; 80048; 80053; 80076; 82728; 82947; 83036; 83605; 83735; 83880; 84145; 84484; 85025; 85379; 85610; 86140; 87040; 93005; 94010; 94760; 96374; 99284; J2270; J2930; J3475; Q9967

== ENCOUNTER 2025-04-09 07:25 | Day surgery (SDC) | payer BC, MEDICARE ==
[2025-04-06 14:36] LABS: Absolute Lymphocytes (CBC) 2.7 K/uL (0.7-4.9); Hematocrit 52.4 % (39.6-49.0); Hemoglobin 16.9 g/dL (13.6-17.9); MCH 22.8 pg (27.0-35.0); MCHC 32.3 g/dL (32.0-36.0); MCV 70.6 fL (80-100); MPV 8.0 fL (7.6-11.3); Nucleated RBC Absolute Count 0.0 (0-0); Nucleated Red Blood Cells % 0.2 % (0-0); RBC Red Blood Cell Count 7.42 M/uL (4.33-5.43); White Blood Count 9.00 thou/uL (4.3-10.9)
[2025-04-06 14:58] LABS: Anion Gap 8.1 mEq/L (5.0-15.0); BUN Blood Urea Nitrogen 11.0 mg/dL (7-18); Glucose Level 149.0 mg/dL (74-106); Potassium 4.1 mEq/L (3.5-5.1)
[2025-04-09] MEDS ORDERED: LIDOCAINE 1% MPF 5 ML VIAL ONE (08:01)
[2025-04-09] MEDS ORDERED: EPHEDRINE SULF 50 MG/ML VIAL ONE (08:01)
[2025-04-09] MEDS: NA CHLORIDE 0.9% 1,000 ML ONE (08:04)
[2025-04-09 10:34] VITALS: BP 109/80; TEMP 98; O2SAT 98
== END 2025-04-09 09:23 | disposition home or self-care (01) ==
LOC: OR 07:25
PROVIDERS: ATTEND Internal Medicine Gastroenterology
PROC: 0DJD8ZZ Inspection of Lower Intestinal Tract, Via Natural or Artificial Opening Endoscopic (ICD-10-PCS; principal; 2025-04-09 08:30)
DX: Z12.11 Encounter for screening for malignant neoplasm of colon (principal); K64.8 Other hemorrhoids; K57.30 Diverticulosis of large intestine without perforation or abscess without bleeding; Z86.0100 Personal history of colon polyps, unspecified
CPT/HCPCS: 36415; 80048; 82947; 85025; 93005; J2003; J2704; J7030

== ENCOUNTER 2025-06-28 07:25 | Day surgery (SDC) | payer MEDICARE ==
[2025-06-25 14:11] LABS: Absolute Lymphocytes (CBC) 2.5 K/uL (0.7-4.9); Hematocrit 53.4 % (39.6-49.0); Hemoglobin 17.4 g/dL (13.6-17.9); MCH 23.3 pg (27.0-35.0); MCHC 32.5 g/dL (32.0-36.0); MCV 71.6 fL (80-100); MPV 8.2 fL (7.6-11.3); Nucleated RBC Absolute Count 0.0 (0-0); Nucleated Red Blood Cells % 0.3 % (0-0); RBC Red Blood Cell Count 7.45 M/uL (4.33-5.43); White Blood Count 8.30 thou/uL (4.3-10.9)
[2025-06-25 14:24] LABS: Anion Gap 9.7 mEq/L (5.0-15.0); BUN Blood Urea Nitrogen 16.0 mg/dL (7-18); Glucose Level 134.0 mg/dL (74-106); Potassium 3.7 mEq/L (3.5-5.1)
[2025-06-28] MEDS: NA CHLORIDE 0.9% 1,000 ML ONE (07:55)
[2025-06-28] MEDS ORDERED: HYDROMORPHONE HCL 1 MG/ML INJ ONE (08:01)
[2025-06-28] MEDS ORDERED: SUGAMMADEX SODIUM 200 MG/2 ML VIAL IV ONE (08:01)
[2025-06-28] MEDS ORDERED: LIDOCAINE 2% MPF 5 ML VIAL ONE (08:06)
[2025-06-28] MEDS ORDERED: MIDAZOLAM HCL 2 MG/2 ML INJ ONE (08:06)
[2025-06-28] MEDS ORDERED: ROCURONIUM 50 MG/5 ML VIAL IV ONE (08:06)
[2025-06-28] MEDS ORDERED: FENTANYL CITR 100 MCG/2 ML ONE (08:06)
[2025-06-28] MEDS ORDERED: ONDANSETRON 4 MG/2 ML VIAL ONE (08:06)
[2025-06-28] MEDS ORDERED: OXYMETAZOLINE HCL 0.05% 30ML NAS ONE (08:11)
[2025-06-28] MEDS ORDERED: NA CHLORIDE 0.9% 1,000 ML ONE (08:12)
[2025-06-28] MEDS: LIDOCAINE HCL/EPINEPHRINE 20 ML MDV ONE (08:33)
[2025-06-28] MEDS: CEFAZOLIN SODIUM 2 GM/VIAL ONE (08:44)
[2025-06-28] MEDS: BACITRACIN OINTMENT 14 GM TUBE TOP ONE (09:26)
[2025-06-28] MEDS: HYDRALAZINE HCL 20 MG/ML VIAL ONE (10:04)
[2025-06-28] MEDS: HYDROCODONE/APAP 10/325 TAB ONE (11:07)
[2025-06-28 11:46] VITALS: TEMP 98.3; O2SAT 95
[2025-06-28 13:47] VITALS: BP 153/90
--- NOTE | 2025-06-28 14:25 | OP ---
Date of Procedure: 06/28/2025 Surgeon: Maddy Maurice Preoperative Diagnoses: 1. Deviated nasal septum. 2. Bilateral inferior turbinate hypertrophy. 3. Bilateral nasal valve collapse. Postoperative Diagnoses: 1. Deviated nasal septum. 2. Bilateral inferior turbinate hypertrophy. 3. Bilateral nasal valve collapse. Procedures: 1. Endoscopic septoplasty. 2. Bilateral inferior turbinate submucosal Coblation. 3. Bilateral VivAer/nasal valve remodeling. Anesthesia: General endotracheal anesthesia was administered. I also infiltrated approximately 10 m L of 1% lidocaine with 1:100,000 epinephrine into bilateral nasal septal mucosa, inferior turbinate m ucosa, and nasal valves. Estimated Blood Loss: Less than 10 mL. Findings: Bilateral nasal septal deviation with left bony spur, bilateral inferior turbinate hypertr ophy 2+/4, bilateral nasal valve collapse dynamic and static. Complications: None. Disposition: Stable. The patient tolerated the procedure well. Indications For Procedure: The patient is a pleasant 54-year-old male with a history of obstructive sleep apnea, who is having significant difficulty breathing through his nose. CT scan of the sinuses showed cleared sinuses, but bilateral deviated septum, inferior turbinate hypertrophy, and then exam ination in my office revealed bilateral internal nasal valve collapse static and dynamic. These were indications to bring the patient to operative suite for the above-mentioned procedure. He understoo d, all questions were answered. Risks versus benefits, complications were explained in detail and a consent form was signed and was placed in the chart. Description Of Procedure: The patient was transferred from the preoperative holding area to the oper ative suite by Department of Anesthesia and placed on the operating room table supine, sedated, and i ntubated in normal fashion. Table was rotated to 180 degrees and Afrin-soaked nasal pledgets were in troduced into bilateral nasal cavities in order for vasoconstriction and decongestion. I infiltrated bilateral nasal septal mucosa, nasal valves, and inferior turbinate mucosa with approximately 10 mL of 1% lidocaine with 1:100,000 epinephrine. Then, the patient was sterilely prepped and draped. Pledgets were removed and I utilized a 0-degree rigid nasal endoscope to directly visualize the intra nasal cavities. Scope was advanced along the floor of the right nasal cavity and photodocumentation was obtained. I then inserted the scope into the left nasal cavity along the floor and photodocument ation was obtained. I made a modified Gene incision into the left nasal septal mucosa utilizing a #15 blade scalpel and I elevated the mucosa off the obstructive cartilage of bone with a [place] eleva tor. A crossover incision was made with a Henry elevator and then the mucosa was gently elevated of f the right nasal septal cartilage and bone. A long speculum was used to isolate the cartilage and b one and then I made superior, posterior, and inferior cuts with a #15 blade scalpel and the obstructi ve cartilage and bone were removed with Gissel forceps. A small amount of posterior vomer bone wa s removed with Gissel forceps. Next, my attention was placed to the inferior turbinates. The left inferior turbinate mucosa was ent ered with the Coblation radiofrequency wand and advanced posteriorly and I performed submucosal Cobla tion of the left inferior turbinate on the setting of 7 for ablation and 3 of coagulation. Next, I entered the right inferior turbinate mucosa into submucous pockets and submucosal Coblation o f the right inferior turbinate was performed with 7 of ablation and 3 of coagulation. Next, I utilized the [employer] handpiece, which was connected and tested and I remodeled the left nasal valve at 3 particular spots around the nasal valve for 30 seconds utilizing the [employer] handpiece. I then repeated this procedure on the right side and I touched approximately 3-4 areas of the right jacey al valve and performed radiofrequency ablation of the right internal nasal valve at 3-4 areas of sten osis. I reapproximated the nasal septal mucosa in a quilting stitch fashion with 4-0 plain gut sutur e on straight Erick needle and then the incision was reapproximated with the 4-0 plain gut suture in a continuous through and through running fashion. Next, the Alanis splints were cut down to size and I coated them with antibiotic ointment and inserted them into bilateral nasal cavities and secured it to the caudal septum with 2-0 Prolene suture. A m ustache dressing was placed and the patient was transferred by Department of Anesthesia in stable con dition, subsequently awakened, extubated, transferred to postoperative care unit in stable condition. He will be discharged home on antibiotic and analgesic medication. Will follow up in 7-10 days or sooner, if needed. MIKE/AMANDA Voice ID: [id number] Report ID: [id number]
== END 2025-06-28 13:15 | disposition home or self-care (01) ==
LOC: OR 07:25
PROVIDERS: ATTEND Otolaryngology Facial Plastic Surgery
PROC: 09BM8ZZ Excision of Nasal Septum, Via Natural or Artificial Opening Endoscopic (ICD-10-PCS; 2025-06-28)
PROC: 09JK8ZZ Inspection of Nasal Mucosa and Soft Tissue, Via Natural or Artificial Opening Endoscopic (ICD-10-PCS; principal; 2025-06-28 08:30)
DX: J34.2 Deviated nasal septum (principal); J34.3 Hypertrophy of nasal turbinates; J34.820 Internal nasal valve collapse
CPT/HCPCS: 36415; 80048; 82947; 85025; J0360; J1100; J1171; J2003; J2250; J2405; J2704; J3010; J7030; J7040